=== PATIENT | female | born 1960 | race Caucasian/White ===

== ENCOUNTER 2017-06-14 14:04 | Emergency (ER) | payer OTHER ==
[~2017-06-14] VITALS: Ht 157.5 cm; Wt 61.0 kg
[~2017-06-14 14:04] MED LIST: CALCTAB80 PO; CHOL50006 PO; CYMB30CA PO; DEPA250T PO; ESTR1TAB12 PO; FIORINAL2 PO; MULT-65 PO; PROBCAP4 PO
[2017-06-14 14:27] VITALS: BP 160/75; PULSE 87; RESP 16; TEMP 98.4; O2SAT 99
--- NOTE | 2017-06-14 14:35 | PD ---
HPI Chief Complaint: Flank/Kidney Pain Time Seen by Provider: 14:34 Travel History International Travel<30 days: No Contact w/Intl Traveler<30days: No Traveled to known affect area: No History of Present Illness HPI 57-year-old female came to the emergency room with history of right-sided flank pain radiating to her left lower quadrant. Patient says that she has been feeling occasional pain for past 2 months on the same side but she didn't make much of it. At first she thought it could be bladder infection. She was drinking lots of fluid and the pain would go away. Today at 11:[address] when the pain suddenly came in and it was excruciating. She describes the pain like labor pains. She called her mother to come and take her to the emergency room. No history of nausea vomiting. No history of fever or chills. No history of hematuria. Patient says the pain comes and goes. It is sharp and intense. Vital signs have been relatively stable. No history of kidney stones in the past. No history of blood in the urine. [facility] Past Medical History Narrative Medical List of her past medical, surgical, social and family history is reviewed from the nursing note. Anxiety: Yes Depression: Yes Cancer: No Cardiovascular Problems: No Diabetes: No Diminished Hearing: No Endocrine: No Genitourinary: No Hepatitis: No Hiatal Hernia: No Immune Disorder: Yes (FIBROMYALGIA) Musculoskeletal: Yes (MUSCLE SPASMS,RESTLESS LEG) Neurologic: Yes (FIBRAMIALGIA,MIGRAINES,NECK PAIN) Psychiatric: Yes (DEPRESSION AND PAIN) Reproductive: No Respiratory: No Thyroid Disease: No Dilation and Curettage (D&C): Yes Tubal Ligation: Yes Past Surgical History AICD: No Gynecologic Surgery: Yes (HYSTERECTOMY,TL) Hysterectomy: Yes (PARTIAL) Joint Replacement: No Oral Surgery: Yes (TONSILLECTOMY) Pacemaker: No Tonsillectomy: Yes Social History Alcohol Use: Yes (OCCASIONALLY BEER) Tobacco Use: No Substance Use: No Allergies-Medications (Allergen,Severity, Reaction): Coded Allergies: morphine (Unverified Allergy, Severe, Twitching, 06/14/17) penicillin G (Unverified Allergy, Severe, Hives, 06/14/17) Comments List of her allergies reviewed from the nursing note. Reported Meds & Prescriptions Reported Meds & Active Scripts Active Flomax (Tamsulosin HCl) 0.4 Mg Cap 0.4 Mg PO HS Hydrocodone-Acetaminophen 5-325 mg Tab 1 Tab PO Q6H PRN Narrative Medication List of her home medications reviewed from the nursing note. Review of Systems Except as stated in HPI: all other systems reviewed are Neg Genitourinary: Positive: Flank Pain Physical Exam Narrative GENERAL: Awake, alert, anxious, moderate distress SKIN: Focused skin assessment warm/dry. HEAD: Atraumatic. Normocephalic. EYES: Pupils equal and round. No scleral icterus. No injection or drainage. ENT: No nasal bleeding or discharge. Mucous membranes pink and moist. NECK: Trachea midline. No JVD. CARDIOVASCULAR: Regular rate and rhythm. No murmur appreciated. RESPIRATORY: No accessory muscle use. Clear to auscultation. Breath sounds equal bilaterally. GASTROINTESTINAL: Abdomen soft, non-tender, nondistended. Hepatic and splenic margins not palpable. MUSCULOSKELETAL: No obvious deformities. No clubbing. No cyanosis. No edema. NEUROLOGICAL: Awake and alert. No obvious cranial nerve deficits. Motor grossly within normal limits. Normal speech. PSYCHIATRIC: Appropriate mood and affect; insight and judgment normal. Data Data Last Documented VS Vital Signs Date Time Temp Pulse Resp B/P (MAP) Pulse Ox O2 Delivery O2 Flow Rate FiO2 06/14/17 16:41 06/14/17 16:15 72 18 99 Room Air 06/14/17 14:27 98.4 Orders Orders Urinalysis - C+S If Indicated (06/14/17 14:29) Complete Blood Count With Diff (06/14/17 14:38) Comprehensive Metabolic Panel (06/14/17 14:38) Ecg Monitoring (06/14/17 14:38) Iv Access Insert/Monitor (06/14/17 14:38) Ketorolac Inj (Toradol Inj) (06/14/17 14:45) Ondansetron Inj (Zofran Inj) (06/14/17 14:45) Sodium Chloride 0.9% Flush (Ns Flush) (06/14/17 14:45) Sodium Chlor 0.9% 1000 Ml Inj (Ns 1000 M (06/14/17 14:38) Morphine Inj (Morphine Inj) (06/14/17 14:45) Ct Abd/Pel W/O Iv Contrast (06/14/17 ) Tamsulosin (Flomax) (06/14/17 16:30) Ed Discharge Order (06/14/17 16:37) Labs Laboratory Tests Test 06/14/17 14:30 06/14/17 14:45 Urine Collection Type CLEAN CATCH Urine Color YELLOW Urine Turbidity SLIGHT Urine pH 7.5 Urine Specific [place] 1.012 Urine Protein NEG mg/dL Urine Glucose (UA) NEG mg/dL Urine Ketones TRACE mg/dL Urine Occult Blood NEG Urine Nitrite NEG Urine Bilirubin NEG Urine Leukocyte Esterase NEG Urine RBC 0-3 /hpf Urine WBC 0-2 /hpf Urine Squamous Epithelial Cells 6-8 /hpf Urine Amorphous Sediment MOD Microscopic Urinalysis Comment CULT NOT INDICATED Urine Collection Time 1430 White Blood Count 5.8 TH/MM3 Red Blood Count 4.07 MIL/MM3 Hemoglobin 12.1 GM/DL Hematocrit 37.1 % Mean Corpuscular Volume 91.1 FL Mean Corpuscular Hemoglobin 29.7 PG Mean Corpuscular Hemoglobin Concent 32.6 % Red Cell Distribution Width 12.4 % Platelet Count 267 TH/MM3 Mean Platelet Volume 7.4 FL Neutrophils (%) (Auto) 55.5 % Lymphocytes (%) (Auto) 34.5 % Monocytes (%) (Auto) 8.3 % Eosinophils (%) (Auto) 0.6 % Basophils (%) (Auto) 1.1 % Neutrophils # (Auto) 3.2 TH/MM3 Lymphocytes # (Auto) 2.0 TH/MM3 Monocytes # (Auto) 0.5 TH/MM3 Eosinophils # (Auto) 0.0 TH/MM3 Basophils # (Auto) 0.1 TH/MM3 CBC Comment DIFF FINAL Differential Comment Blood Urea Nitrogen 15 MG/DL Creatinine 0.60 MG/DL Random Glucose 99 MG/DL Total Protein 7.2 GM/DL Albumin 3.9 GM/DL Calcium Level 8.5 MG/DL Alkaline Phosphatase 57 U/L Aspartate Amino Transf (AST/SGOT) 15 U/L Alanine Aminotransferase (ALT/SGPT) 14 U/L Total Bilirubin 0.3 MG/DL Sodium Level 139 MEQ/L Potassium Level 3.5 MEQ/L Chloride Level 104 MEQ/L Carbon Dioxide Level 26.6 MEQ/L Anion Gap 8 MEQ/L Estimat Glomerular Filtration Rate 104 ML/MIN [facility] Medical Decision Making Medical Screen Exam Complete: Yes Emergency Medical Condition: Yes Medical Record Reviewed: Yes Differential Diagnosis Ureteral colic, pyelonephritis, musculoskeletal pain Narrative Course 3:21 PM patient was medicated for pain. Currently awaiting for blood test, UA and CAT scan. 4:[address] scan shows a 2 mm stone at the UVJ junction. There is mild hydroureter. UA and blood tests are within normal limit. I went back and talked to the patient and let her know about the CAT scan report. Patient has never had kidney stones before and hence had multiple questions which were answered by me to the best of my ability. I've given her a dose of Flomax and she'll be discharged home. She says the pain feels much better now. Procedures EKG Prior to Arrival: No Diagnosis Primary Impression: Ureteral colic Referrals: Ravinder Churchill DO Additional Instructions: Return to the ER if condition worsens or any other new concerns. Otherwise take the medication as per the prescription direction. Follow-up with the urologist whose name and number been given to you if symptoms worsen Med/Other Pt SpecificInfo: Prescription(s) given Scripts Tamsulosin (Flomax) 0.4 Mg Cap 0.4 MG PO HS for Manage Prostate Problems, #10 CAP 0 Refills Prov: Ben Bagley MD 06/14/17 Hydrocodone-Acetaminophen (Hydrocodone-Acetaminophen) 5-325 mg Tab 1 TAB PO Q6H Y for PAIN, #12 TAB 0 Refills Prov: Ben Bagley MD 06/14/17 Disposition: 01 DISCHARGE HOME Condition: Stable Ben Bagley MD Jun 14, 2017 14:35
[2017-06-14] MEDS ORDERED: SODIUM CHLOR 0.9% 1000 ML INJ 1,000 ML IV ONE (14:38)
[2017-06-14] MEDS ORDERED: ONDANSETRON HCL 4 MG/2 ML VIAL IV PUSH ONE (14:45)
[2017-06-14] MEDS ORDERED: MORPHINE SULFATE 2 MG/ML INJ IV PUSH ONE (14:45)
[2017-06-14] MEDS ORDERED: KETOROLAC TROMETHAMINE 30 MG/ML (IVP) VIAL IV PUSH ONE (14:45)
[2017-06-14] MEDS ORDERED: SODIUM CHLORIDE 0.9% FLUSH 10 ML FLUSH IVF PRN (14:45)
[2017-06-14 15:01] LABS: BILIRUBIN, URINE NEG (NEG); BLOOD, URINE NEG (NEG); GLUCOSE,URINE NEG (NEG); KETONE, URINE TRACE mg/dL (NEG); NITRITE,URINE NEG (NEG); PH, URINE 7.5 (5.0-8.5); URINE LEUKOCYTE ESTERASE NEG (NEG)
[2017-06-14 15:05] LABS: AUTOMATED NEUTROPHIL # 3.2 TH/MM3 (1.8-7.7); BASOPHIL # 0.1 TH/MM3 (0-0.2); BASOPHIL % 1.1 % (0.0-2.0); EOSINOPHIL % 0.6 % (0.0-4.0); HEMATOCRIT 37.1 % (35.0-46.0); HEMOGLOBIN 12.1 GM/DL (11.6-15.3); LYMPH % 34.5 % (9.0-44.0); MEAN CELL VOLUME 91.1 FL (80.0-100.0); MEAN CORPUSCULAR HEMOGLOBIN 29.7 PG (27.0-34.0); MEAN CORPUSCULAR HGB CONC 32.6 % (32.0-36.0); MEAN PLATELET VOLUME 7.4 FL (7.0-11.0); MONO % 8.3 % (0.0-8.0); MONOCYTE # 0.5 TH/MM3 (0-0.9); NEUT % 55.5 % (16.0-70.0); PLATELET COUNT 267 TH/MM3 (150-450); RED BLOOD COUNT 4.07 MIL/MM3 (4.00-5.30); RED CELL DISTRIBUTION WIDTH 12.4 % (11.6-17.2); WHITE BLOOD COUNT 5.8 TH/MM3 (4.0-11.0)
[2017-06-14 15:12] LABS: URINE COLOR YELLOW (YELLW/STRAW)
[2017-06-14 15:13] LABS: CHLORIDE 104 MEQ/L (98-107); SODIUM (NA) 139 MEQ/L (136-145)
[2017-06-14 15:13] LABS: AMORPHOUS SEDIMENT, URINE MOD; RBC, URINE 0-3 /hpf (0-3); WBC, URINE 0-2 /hpf (0-5)
[2017-06-14 15:16] LABS: ALBUMIN 3.9 GM/DL (3.4-5.0); BICARBONATE 26.6 MEQ/L (21.0-32.0); BLOOD UREA NITROGEN 15 MG/DL (7-18); CALCIUM 8.5 MG/DL (8.5-10.1); GLUCOSE,RANDOM 99 MG/DL (74-106)
[2017-06-14 15:19] LABS: ALT (GPT) 14 U/L (10-53); AST (GOT) 15 U/L (15-37); GLOMERULAR FILTRATION RATE 104 ML/MIN (>89)
[2017-06-14 15:21] LABS: TOTAL BILIRUBIN ADULT 0.3 MG/DL (0.2-1.0); TOTAL PROTEIN 7.2 GM/DL (6.4-8.2)
[2017-06-14 15:22] LABS: ALKALINE PHOSPHATASE 57 U/L (45-117)
[2017-06-14 16:15] VITALS: BP 149/84; PULSE 72; RESP 18; O2SAT 99
--- NOTE | 2017-06-14 16:26 | RADRPT ---
EXAM DATE/TIME: 06/14/2017 15:30 [place] COMPARISON: No previous studies available for comparison. INDICATIONS : Right sided abdominal pain radiating down pelvis. ORAL CONTRAST: No oral contrast ingested. RADIATION DOSE: 9.74 CTDIvol (mGy) MEDICAL HISTORY : Gastroesophageal reflux disease. SURGICAL HISTORY : Hysterectomy. Tubal ligation. ENCOUNTER: Initial ACUITY: 1 day PAIN SCALE: 3/10 LOCATION: Right pelvis abdomen TECHNIQUE: Volumetric scanning of the abdomen and pelvis was performed. Using automated exposure control and ad justment of the mA and/or kV according to patient size, radiation dose was kept as low as reasonably achievable to obtain optimal diagnostic quality images. DICOM format image data is available electro nically for review and comparison. FINDINGS: LOWER LUNGS: The visualized lower lungs are clear. LIVER: 3.3 cm rounded mass in the posterior segment right lobe of the liver on image #12. 1.9 cm hypodense m ass in the posterior right lobe of the liver on image #15. A 2.5 cm round hypodense mass in the later al segment of the left lobe of the liver on image #13. Several additional smaller rounded lesions are also seen in the liver. All of these are indeterminate. SPLEEN: Normal size without lesion. PANCREAS: Within normal limits. KIDNEYS: 2 mm calculus in the distal right ureter at the ureterovesical junction. Mild diffuse right hydrouret er. Trace right hydronephrosis. Punctate 2 mm calculus seen in the lower pole of the right kidney. Pu nctate 2 mm calculus seen in the upper pole of the right kidney. No renal masses identified. ADRENAL GLANDS: Within normal limits. VASCULAR: There is no aortic aneurysm. BOWEL/MESENTERY: No evidence of bowel dilatation. No free air or free fluid. Appendix within normal limits. ABDOMINAL WALL: Within normal limits. RETROPERITONEUM: There is no lymphadenopathy. BLADDER: No wall thickening or mass. REPRODUCTIVE: Within normal limits. INGUINAL: There is no lymphadenopathy or hernia. MUSCULOSKELETAL: Within normal limits for patient age. CONCLUSION: 1. Distal right ureteral calculus at the ureterovesical junction. Mild diffuse right hydroureter and mild right hydronephrosis. 2. Multiple rounded hypodense lesions in the liver. These findings are nonspecific on noncontrast CT. Followup MRI abdomen with and without contrast or multiphasic contrast-enhanced abdomen CT could be performed for further evaluation. Patel Ramos MD on June 14, 2017 at 16:19 Board Certified Radiologist. This report was verified electronically.
[2017-06-14] MEDS ORDERED: TAMSULOSIN HCL 0.4 MG CAP PO ONE (16:30)
[2017-06-14] MEDS ORDERED: TAMS5CAP PO (16:37)
[2017-06-14] MEDS ORDERED: HYDR-3516 PO (16:37)
== END 2017-06-14 16:47 | disposition home or self-care (01) ==
LOC: PHED 14:04
DX: N23 Unspecified renal colic (principal); F32.9 Major depressive disorder, single episode, unspecified; M79.7 Fibromyalgia; Z88.0 Allergy status to penicillin; Z88.5 Allergy status to narcotic agent
CPT/HCPCS: 74176; 80053; 81001; 85025; 96361; 96374; 96375; 99285; J1885; J2405; J7030